=== PATIENT | female | born 1990 | race Native Hawaiian/Other Pacific Islander ===

== ENCOUNTER 2022-09-16 10:55 | Emergency (ER) | payer OTHER ==
[~2022-09-16] VITALS: Ht 124.5 cm; Wt 64.4 kg
[2022-09-16 10:59] VITALS: TEMP 97.3
[2022-09-16 11:21] LABS: PLATELET COUNT 305 K/uL (152-353)
[2022-09-16 14:50] VITALS: BP 109/70
== END 2022-09-16 15:05 | disposition home or self-care (01) ==
LOC: ED 10:55
PROVIDERS: Emergency Medicine
DX: R10.32 Left lower quadrant pain (principal); R10.31 Right lower quadrant pain; Z3A.13 13 weeks gestation of pregnancy
CPT/HCPCS: 80053; 81002; 81025; 82150; 83690; 84702; 85027; 96374; 99284; J2405